=== PATIENT | male | born 1990 | race Caucasian/White ===

== ENCOUNTER → 2017-04-06 | Outpatient (CLI) | payer BC | END | disposition home or self-care (01) | LOC: RAD 14:11 | PROVIDERS: ATTEND Family Medicine | DX: I86.1 Scrotal varices (principal) | CPT/HCPCS: 76870; 93975 ==

== ENCOUNTER 2019-10-07 11:07 | Emergency (ER) | payer BC ==
[~2019-10-07] VITALS: Ht 180.3 cm; Wt 79.4 kg
--- NOTE | 2019-10-07 11:34 | NUR ---
RESIDENT MD DR. LEONARDO AT BEDSIDE FOR ASSESSMENT.
--- NOTE | 2019-10-07 12:01 | NUR ---
PT STATES RECURRENT H/A AND DIZZINESS X1 MONTH OFF AND ON. PT STATES HE FEELS "FUZZY" PT DENIES AND SYNCOPLE EPISODES. PT PLACED ON MONITORS, HR 120'S. PT WITH STEADY GAIT CURRENTLY, A&OX4. PT GIVEN URINAL, AWARE NEEDS URINE SAMPLE. WILL FOLLOW ORDERS.
--- NOTE | 2019-10-07 12:30 | NUR ---
BREAK RN: ORTHOSTATIC VS COMPLETED AND RPT TO PROVIDER. URINE COLLECTED AND SENT TO LAB. PT OOB AMBULATED TO BATHROOM, STEADY GAIT, NAD NOTED.
[2019-10-07 12:33] LABS: BASOPHILS # (AUTO) 0.04 x10^3/uL (0-0.1); BASOPHILS % (AUTO) 0 % (0-1); EOSINOPHILS # (AUTO) 0.04 x10^3/uL (0-0.4); EOSINOPHILS % (AUTO) 0 % (1-7); LYMPHOCYTES # (AUTO) 1.69 x10^3/uL (1-3.4); LYMPHOCYTES % (AUTO) 16 % (22-44); MD NO; MEAN CORPUSCULAR HEMOGLOBIN 31.6 pg (27.5-34.5); MEAN CORPUSCULAR HGB CONC 33.8 g/dL (33.2-36.2); MEAN CORPUSCULAR VOLUME 93.5 fL (81-97); MONOCYTES # (AUTO) 1.01 x10^3/uL (0.2-0.8); MONOCYTES % (AUTO) 9 % (2-9); NEUTROPHILS % (AUTO) 75 % (42-75); PLATELET COUNT 248 x10^3/uL (130-400); RED BLOOD COUNT 5.26 x10^6/uL (4.38-5.82); RED CELL DISTRIBUTION WIDTH 12.5 % (9.4-14.8)
[2019-10-07 12:40] LABS: MICROSCOPIC NOT IND
[2019-10-07 12:47] LABS: ALBUMIN 4.7 g/dL (3.4-5.0); ANION GAP 6 mmol/L (5-15); CALCIUM 9.5 mg/dL (8.5-10.1); CHLORIDE 108 mmol/L (98-107)
[2019-10-07 12:59] LABS: ALANINE AMINOTRANSFERASE 42 U/L (12-78); ALKALINE PHOSPHATASE 76 U/L (45-117); BILIRUBIN,TOTAL 0.6 mg/dL (0.2-1.0); CREATININE 1.01 mg/dL (0.7-1.3); TOTAL PROTEIN 8.2 g/dL (6.4-8.2)
--- NOTE | 2019-10-07 13:37 | NUR ---
PT D/C'D PER ORDERS. VERBALIZED UNDERSTANDING OF D/C ORDERS, STEADY GAIT UPON D/C.
[2019-10-07 13:38] VITALS: BP 121/76
== END 2019-10-07 13:40 | disposition home or self-care (01) ==
LOC: ED 11:56
DX: F41.1 Generalized anxiety disorder (principal); R00.0 Tachycardia, unspecified; R42 Dizziness and giddiness; R09.81 Nasal congestion
CPT/HCPCS: 36415; 80053; 81003; 84443; 85025; 93005; 99284